=== PATIENT | female | born 1990 | race Caucasian/White ===

== ENCOUNTER 2023-07-06 17:58 | Emergency (ER) | payer OTHER ==
[~2023-07-06] VITALS: Ht 154.9 cm; Wt 60.6 kg
[2023-07-06 18:25] LABS: URINE HCG NEGATIVE (NEG)
[2023-07-06 18:26] LABS: BILIRUBIN,URINE NEGATIVE (Neg); CLARITY,URINE CLEAR (Clear); COLOR,URINE YELLOW (Yellow); GLUCOSE, URINE NEGATIVE (Neg); KETONES,URINE NEGATIVE (Neg); LEUKOCYTE ESTERASE ,URINE NEGATIVE (Neg); NITRITES, URINE NEGATIVE (Neg); OCCULT BLOOD,URINE TRACE-INTACT (Neg); PROTEIN,URINE NEGATIVE (Neg); UROBILINOGEN,URINE 0.2 E.U/dL (0.2-1.0)
[2023-07-06 18:28] LABS: UA COLLECTION TYPE CLN CATCH MIDSTREAM
[2023-07-06 18:34] LABS: BASOPHILS # (AUTO) 0.1 X10'3 (0-0.2); BASOPHILS % (AUTO) 1.1 % (0-1); EOSINOPHILS # (AUTO) 0.6 X10'3 (0-0.9); EOSINOPHILS % (AUTO) 5.9 % (0-6); HEMATOCRIT 45.2 % (35.0-45.0); HEMOGLOBIN 15.2 g/dl (12.0-16.0); LYMPHOCYTES # (AUTO) 3.4 X10'3 (1.1-4.8); LYMPHOCYTES % (AUTO) 34.3 % (21-51); MEAN CORPUSCULAR HEMOGLOBIN 29.1 PG (27.0-31.0); MEAN CORPUSCULAR HGB CONC 33.6 g/dL (33.0-36.5); MEAN CORPUSCULAR VOLUME 86.7 FL (78-98); MEAN PLATELET VOLUME 8.6 FL (7.4-10.4); MONOCYTES # (AUTO) 0.6 X10'3 (0-0.9); MONOCYTES % (AUTO) 6.2 % (2-12); NEUTROPHILS # (AUTO) 5.3 X10'3 (1.8-7.7); NEUTROPHILS % (AUTO) 52.5 % (42-75); PLATELET COUNT 357 X10'3 (140-440); RED BLOOD COUNT 5.22 X10'6 (4.20-5.60)
[2023-07-06 18:41] LABS: BACTERIA,URINE 1+ /HPF (Neg); MUCUS STRANDS MANY /LPF (Neg); RBC,URINE NONE SEEN /HPF (0-2); SQUAMOUS EPITHELIAL CELL,UR MANY /LPF (FEW); WBC,URINE 0-4 /HPF (0-4)
[2023-07-06 19:01] LABS: ALANINE AMINOTRANSFERASE 11 U/L (12-78); ALKALINE PHOSPHATASE 77 IU/L (46-116); ANION GAP 11 (8-16); ASPARTATE AMINO TRANSFERASE 12 U/L (10-37); BILIRUBIN,TOTAL 1.1 MG/DL (0.1-1.0); BLOOD UREA NITROGEN 13 MG/DL (7-18); BUN/CREATININE RATIO 15.5 (10.0-20.0); CALCIUM 8.5 MG/DL (8.5-10.1); CHLORIDE 104 MMOL/L (99-107); CREATININE 0.84 MG/DL (0.40-0.90); GLUCOSE 104 MG/DL (70-104); LIPASE 31 U/L (16-77); POTASSIUM 3.9 MMOL/L (3.5-5.1); SODIUM 140 MMOL/L (135-145); TOTAL CARBON DIOXIDE 25.4 MMOL/L (24-32); TOTAL PROTEIN 8.1 G/DL (6.4-8.2); eCRCL 71 ML/MIN; eGFR 78 ML/MIN
[2023-07-06 21:16] VITALS: BP 133/85; PULSE 96; O2SAT 99
[2023-07-06 22:01] VITALS: RESP 17
[2023-07-06] MEDS ORDERED: OMEP40CA21 PO (22:10)
[2023-07-06] MEDS: LIDOcaine 2% Viscous 15ml cup MM PRN (22:11)
[2023-07-06] MEDS: mag hydrox/Alum hydrox/simeth 30ml oral suspension PO ONE (22:11)
[2023-07-06 22:16] VITALS: TEMP 98.5
== END 2023-07-06 22:23 | disposition home or self-care (01) ==
LOC: ER 17:59
DX: K29.00 Acute gastritis without bleeding (principal); R10.9 Unspecified abdominal pain; Z88.5 Allergy status to narcotic agent; Z88.6 Allergy status to analgesic agent
CPT/HCPCS: 36415; 80053; 81001; 81025; 83690; 85025; 99283